=== PATIENT | female | born 1980 | race Caucasian/White ===

== ENCOUNTER 2018-06-06 23:42 | Inpatient (IN) | payer OTHER ==
[2018-06-07] MEDS ORDERED: DOCUSATE SODIUM 100 MG CAP PO (02:30)
[2018-06-07] MEDS ORDERED: NITROGLYCERIN (SL) 0.4 MG TAB SL (02:30)
[2018-06-07] MEDS ORDERED: BISACODYL (EC) 5 MG TAB PO (02:30)
[2018-06-07] MEDS ORDERED: ACETAMINOPHEN 325 MG TAB PO (02:30)
[2018-06-07] MEDS ORDERED: NACL 0.9% 3 ML SYG IV (02:30)
[2018-06-07 03:15] LABS: ADD MAN DIFF? NO
[2018-06-07 03:16] LABS: WHITE BLOOD COUNT 17.1 10^3/ul (4.8-10.8)
[2018-06-07 03:16] LABS: BASOPHILS % 0.1 % (0.0-2.0); HEMATOCRIT 36.9 % (37.0-47.0); HEMOGLOBIN 10.7 g/dl (12.0-16.0); LYMPHOCYTES # 1.3 10^3/ul (0.8-2.9); LYMPHOCYTES % 7.4 % (15.0-51.0); MEAN CORPUSCULAR HEMOGLOBIN 23.6 pg (29.0-33.0); MEAN CORPUSCULAR VOLUME 81.3 fl (82.0-101.0); MEAN PLATELET VOLUME 10.3 fl (7.4-10.4); MONOCYTE # 1.1 10^3/ul (0.3-0.9); MONOCYTES % 6.5 % (0.0-11.0); NEUTROPHIL # 14.6 10^3/ul (1.6-7.5); NEUTROPHILS % 85.6 % (39.0-77.0); PLATELET COUNT 330 10^3/UL (140-415); RED BLOOD COUNT 4.54 10^6/ul (4.20-5.40); RED CELL DISTRIBUTION WIDTH 20.6 % (11.5-14.5)
[2018-06-07 03:24] LABS: HEMOGLOBIN A1C 5.5 % (0-5.9)
[2018-06-07 03:38] LABS: CHOLESTEROL 76 mg/dl (100-200)
[2018-06-07 03:38] LABS: CHOL/HDL RATIO 2.3 RATIO; HDL CHOLESTEROL 33 mg/dl (34-82); LDL CHOLESTEROL,CALCULATED 28 mg/dl; TRIGLYCERIDES 74 mg/dl (0-149)
[2018-06-07 03:41] LABS: ALANINE AMINOTRANSFERASE 23 IU/L (13-69); ALBUMIN 3.6 g/dl (3.3-4.9); ALBUMIN/GLOBULIN RATIO 0.92; ALKALINE PHOSPHATASE 157 IU/L (42-121); ANION GAP 16 (8-16); ASPARTATE AMINO TRANSFERASE 26 IU/L (15-46); BILIRUBIN,INDIRECT 0.6 mg/dl (0-1.1); BILIRUBIN,TOTAL 0.6 mg/dl (0.2-1.3); BLOOD UREA NITROGEN 11 mg/dl (7-20); CALCIUM 8.7 mg/dl (8.4-10.2); CARBON DIOXIDE 26 mmol/L (21-31); CHLORIDE 105 mmol/L (97-110); CREATINE KINASE 38 IU/L (23-200); CREATININE 0.55 mg/dl (0.44-1.00); GLUCOSE 137 mg/dl (70-220); MAGNESIUM 1.9 mg/dl (1.7-2.5); POTASSIUM 4.3 mmol/L (3.5-5.1); SODIUM 143 mmol/L (135-144); TOTAL PROTEIN 7.5 g/dl (6.1-8.1)
[2018-06-07 03:52] LABS: CK INDEX 4.4; CK-MB 1.67 ng/ml (0.0-2.4); TROPONIN-I 0.014 ng/ml (0.000-0.120)
[2018-06-07] MEDS ORDERED: METOPROLOL 25 MG TAB PO (04:00)
[2018-06-07] MEDS: METOPROLOL 5 MG INJ IV (04:01)
[2018-06-07 05:11] LABS: THYROID STIMULATING HORMONE 0.614 MIU/L (0.465-4.680)
[2018-06-07] MEDS: METOPROLOL 25 MG TAB PO (06:22)
[2018-06-07] MEDS: CEFTRIAXONE 1 GM/50 ML (PMX) 50 ML IVPB (06:47)
[2018-06-07] MEDS: AZITHROMYCIN 500MG/NS (PMX) 250 ML IVPB (07:30)
[2018-06-07] MEDS: ONDANSETRON 4 MG INJ IV (08:50)
[2018-06-07 09:05] LABS: CREATINE KINASE 32 IU/L (23-200)
[2018-06-07 09:19] LABS: CK INDEX 5.5; CK-MB 1.77 ng/ml (0.0-2.4)
[2018-06-07] MEDS: ASPIRIN 81 MG TAB PO (09:27)
[2018-06-07] MEDS: ENOXAPARIN 100 MG/ML SYG SC ×2 (09:28→21:42)
[2018-06-07 11:15] LABS: AMPHETAMINE/METHAMPHETAMINE Negative (NEGATIVE); BARBITURATES Negative (NEGATIVE); BENZODIAZEPINES Negative (NEGATIVE); CANNABINOIDS Negative (NEGATIVE); COCAINE Negative (NEGATIVE); OPIATES Negative (NEGATIVE)
[2018-06-07] MEDS ORDERED: METOPROLOL 5 MG INJ IV (17:30)
[2018-06-07] MEDS: DIGOXIN 500 MCG INJ IV ×2 (17:33→21:41)
[2018-06-07 19:13] LABS: CREATINE KINASE 34 IU/L (23-200)
[2018-06-07 19:27] LABS: CK INDEX 5.2; CK-MB 1.76 ng/ml (0.0-2.4); TROPONIN-I 0.013 ng/ml (0.000-0.120)
[2018-06-07] MEDS: ATENOLOL 25 MG TAB PO (21:40)
[2018-06-07] MEDS: LEVALBUTEROL (NEB) 0.63 MG/3 ML AMP HHN (21:53)
[2018-06-08 01:35] LABS: CREATINE KINASE 30 IU/L (23-200)
[2018-06-08 01:50] LABS: TROPONIN-I 0.021 ng/ml (0.000-0.120)
[2018-06-08] MEDS: LEVALBUTEROL (NEB) 0.63 MG/3 ML AMP HHN ×3 (02:22→19:01)
[2018-06-08] MEDS: CEFTRIAXONE 1 GM/50 ML (PMX) 50 ML IVPB (06:41)
[2018-06-08] MEDS: AZITHROMYCIN 500MG/NS (PMX) 250 ML IVPB (06:41)
[2018-06-08 07:46] LABS: ADD MAN DIFF? NO
[2018-06-08 07:52] LABS: BASOPHILS % 0.4 % (0.0-2.0); EOSINOPHILS # 0.1 10^3/ul (0.0-0.5); HEMATOCRIT 34.7 % (37.0-47.0); HEMOGLOBIN 10.2 g/dl (12.0-16.0); LYMPHOCYTES % 19.4 % (15.0-51.0); MEAN CORPUSCULAR HGB CONC 29.4 g/dl (32.0-37.0); MEAN CORPUSCULAR VOLUME 81.6 fl (82.0-101.0); MEAN PLATELET VOLUME 10.1 fl (7.4-10.4); MONOCYTE # 0.8 10^3/ul (0.3-0.9); MONOCYTES % 7.6 % (0.0-11.0); NEUTROPHIL # 7.1 10^3/ul (1.6-7.5); NEUTROPHILS % 71.2 % (39.0-77.0); PLATELET COUNT 302 10^3/UL (140-415); RED BLOOD COUNT 4.25 10^6/ul (4.20-5.40); RED CELL DISTRIBUTION WIDTH 19.9 % (11.5-14.5)
[2018-06-08 08:14] LABS: PHOSPHORUS 4.7 mg/dl (2.5-4.9)
[2018-06-08 08:14] LABS: MAGNESIUM 1.6 mg/dl (1.7-2.5)
[2018-06-08 08:18] LABS: CREATINE KINASE 27 IU/L (23-200)
[2018-06-08 08:24] LABS: CK INDEX 3.6; CK-MB 0.97 ng/ml (0.0-2.4); TROPONIN-I 0.023 ng/ml (0.000-0.120)
[2018-06-08] MEDS: ATENOLOL 25 MG TAB PO ×2 (08:27→20:42)
[2018-06-08] MEDS: ASPIRIN 81 MG TAB PO (08:27)
[2018-06-08] MEDS: ENOXAPARIN 100 MG/ML SYG SC ×2 (08:28→20:43)
[2018-06-08 09:00] LABS: ALANINE AMINOTRANSFERASE 28 IU/L (13-69); ALBUMIN 2.8 g/dl (3.3-4.9); ALBUMIN/GLOBULIN RATIO 0.82; ALKALINE PHOSPHATASE 121 IU/L (42-121); ANION GAP 16 (8-16); ASPARTATE AMINO TRANSFERASE 32 IU/L (15-46); BILIRUBIN,INDIRECT 0.7 mg/dl (0-1.1); BILIRUBIN,TOTAL 0.7 mg/dl (0.2-1.3); BLOOD UREA NITROGEN 9 mg/dl (7-20); CALCIUM 8.3 mg/dl (8.4-10.2); CARBON DIOXIDE 26 mmol/L (21-31); CHLORIDE 103 mmol/L (97-110); CREATININE 0.53 mg/dl (0.44-1.00); GLUCOSE 89 mg/dl (70-220); POTASSIUM 4.6 mmol/L (3.5-5.1); SODIUM 140 mmol/L (135-144); TOTAL PROTEIN 6.2 g/dl (6.1-8.1)
[2018-06-08] MEDS: MAGNESIUM SULFATE 2 GM/50 ML 50 ML IVPB (09:21)
[2018-06-08 10:05] LABS: B-TYPE NATRIURETIC PEPTIDE 3200 PG/ML (0-125)
[2018-06-08 14:40] LABS: IRON 28 ug/dl (35-150)
[2018-06-08 14:50] LABS: % IRON SATURATION 8 % SAT (22-52); TOTAL IRON BINDING CAPACITY 339 ug/dl (241-421)
[2018-06-08 15:16] LABS: FERRITIN 76.1 ng/ml (6.2-137.0)
[2018-06-09] MEDS: AZITHROMYCIN 500MG/NS (PMX) 250 ML IVPB (05:48)
[2018-06-09] MEDS: CEFTRIAXONE 1 GM/50 ML (PMX) 50 ML IVPB (05:48)
[2018-06-09 06:30] LABS: ADD MAN DIFF? NO
[2018-06-09 06:32] LABS: WHITE BLOOD COUNT 7.2 10^3/ul (4.8-10.8)
[2018-06-09 06:32] LABS: BASOPHIL # 0.1 10^3/ul (0.0-0.1); BASOPHILS % 0.8 % (0.0-2.0); EOSINOPHILS # 0.2 10^3/ul (0.0-0.5); EOSINOPHILS % 3.2 % (0.0-7.0); HEMOGLOBIN 10.5 g/dl (12.0-16.0); LYMPHOCYTES # 1.9 10^3/ul (0.8-2.9); MEAN CORPUSCULAR HEMOGLOBIN 23.8 pg (29.0-33.0); MEAN CORPUSCULAR HGB CONC 29.2 g/dl (32.0-37.0); MEAN CORPUSCULAR VOLUME 81.4 fl (82.0-101.0); MONOCYTE # 0.6 10^3/ul (0.3-0.9); MONOCYTES % 8.6 % (0.0-11.0); NEUTROPHIL # 4.4 10^3/ul (1.6-7.5); NEUTROPHILS % 61.1 % (39.0-77.0); PLATELET COUNT 321 10^3/UL (140-415); RED BLOOD COUNT 4.42 10^6/ul (4.20-5.40); RED CELL DISTRIBUTION WIDTH 19.8 % (11.5-14.5)
[2018-06-09 06:58] LABS: MAGNESIUM 1.8 mg/dl (1.7-2.5)
[2018-06-09 06:58] LABS: PHOSPHORUS 4.7 mg/dl (2.5-4.9)
[2018-06-09 07:05] LABS: ALANINE AMINOTRANSFERASE 30 IU/L (13-69); ALBUMIN 2.9 g/dl (3.3-4.9); ALBUMIN/GLOBULIN RATIO 0.82; ALKALINE PHOSPHATASE 142 IU/L (42-121); ASPARTATE AMINO TRANSFERASE 30 IU/L (15-46); BILIRUBIN,INDIRECT 0.6 mg/dl (0-1.1); BILIRUBIN,TOTAL 0.6 mg/dl (0.2-1.3); BLOOD UREA NITROGEN 9 mg/dl (7-20); CALCIUM 8.5 mg/dl (8.4-10.2); CARBON DIOXIDE 29 mmol/L (21-31); CHLORIDE 102 mmol/L (97-110); CREATININE 0.57 mg/dl (0.44-1.00); GLUCOSE 95 mg/dl (70-220); SODIUM 141 mmol/L (135-144); TOTAL PROTEIN 6.4 g/dl (6.1-8.1)
[2018-06-09 07:13] LABS: B-TYPE NATRIURETIC PEPTIDE 3710 PG/ML (0-125)
[2018-06-09 08:13] LABS: ANION GAP 15 (8-16); POTASSIUM 4.6 mmol/L (3.5-5.1)
[2018-06-09] MEDS: ATENOLOL 25 MG TAB PO (08:25)
[2018-06-09] MEDS: ASPIRIN 81 MG TAB PO (08:25)
[2018-06-09] MEDS: LEVALBUTEROL (NEB) 0.63 MG/3 ML AMP HHN (08:37)
[2018-06-09] MEDS: ENOXAPARIN 100 MG/ML SYG SC (08:42)
[2018-06-09] MEDS ORDERED: DIGOXIN 0.125 MG TAB PO (13:00)
== END 2018-06-09 12:32 | disposition home or self-care (01) | DRG 308 ==
LOC: E/R 23:42 → MS4 06-08 18:00
DX: I48.92 Unspecified atrial flutter (principal); J18.9 Pneumonia, unspecified organism; I50.22 Chronic systolic (congestive) heart failure; I11.0 Hypertensive heart disease with heart failure; I27.20 Pulmonary hypertension, unspecified; I42.9 Cardiomyopathy, unspecified; Y95 Nosocomial condition; J45.909 Unspecified asthma, uncomplicated; I48.0 Paroxysmal atrial fibrillation; Z86.73 Personal history of transient ischemic attack (TIA), and cerebral infarction without residual deficits; Z79.02 Long term (current) use of antithrombotics/antiplatelets
CPT/HCPCS: 71045; 80053; 80061; 80307; 82550; 82553; 82728; 83036; 83540; 83735; 83880; 84100; 84443; 84484; 84703; 85025; 93005; 93306; 94640; 94664; 99285-25